=== PATIENT | female | born 1985 | race Hispanic/Latino ===

== ENCOUNTER 2023-05-24 16:24 | Emergency (ER) | payer OTHER ==
[2023-05-24] MEDS ORDERED: CETIRIZINE HCL 5 MG TABLET ONE (16:50)
[2023-05-24] MEDS ORDERED: ALBUTEROL 2.5 MG/3 ML NEB SOL ONE (16:50)
[2023-05-24] MEDS ORDERED: dexAMETHasone 10 MG/ML VIAL ONE (16:50)
[2023-05-24] MEDS ORDERED: FAMOTIDINE 20 MG/2 ML VIAL IV ONE (16:51)
[2023-05-24] MEDS ORDERED: MAGNESIUM SULFATE 1 gm IVPB 1 GM/100 ML BAG IV ONE (16:51)
[2023-05-24] MEDS ORDERED: NA CHLORIDE 0.9% 1,000 ML ONE (16:51)
--- NOTE | 2023-05-24 17:41 | ER ---
Nurse's Notes [facility] Name: Denice Alonso Age: 38 yrs Sex: Female : 1985 Arrival Date: 05/24/2023 Time: 16:24 Bed 13 Private MD: Diagnosis: Unspecified asthma with (acute) exacerbation Presentation: 05/24 16:34 Chief complaint: Patient states: Asthma exacerbation since this morning. Coronavirus ld1 screen: At this time, the client does not indicate any symptoms associated with coronavirus-19. Ebola Screen: No symptoms or risks identified at this time. Initial Sepsis Screen: Does the patient meet any 2 criteria? No. Patient's initial sepsis screen is negative. Does the patient have a suspected source of infection? No. Patient's initial sepsis screen is negative. Risk Assessment: Do you want to hurt yourself or someone else? Patient reports no desire to harm self or others. Onset of symptoms was May 24, 2023. 16:34 Method Of Arrival: Ambulatory ld1 16:34 Acuity: JOSHUA 3 ld1 Triage Assessment: 16:35 General: Appears in no apparent distress. comfortable, Behavior is calm, cooperative, ld1 appropriate for age. Pain: Denies pain. EENT: No signs and/or symptoms were reported regarding the EENT system. Neuro: Level of Consciousness is awake, alert, obeys commands, Oriented to person, place, time, situation. Cardiovascular: Capillary refill < 3 seconds Patient's skin is warm and dry. Rhythm is sinus rhythm. Respiratory: Airway is patent Respiratory effort is even, labored, Breath sounds with wheezes bilaterally. GI: Abdomen is round non-distended. : No signs and/or symptoms were reported regarding the genitourinary system. Derm: No signs and/or symptoms reported regarding the dermatologic system. Musculoskeletal: No signs and/or symptoms reported regarding the musculoskeletal system. Historical: - Allergies: 16:35 No Known Allergies; ld1 - PMHx: 16:35 Asthma; ld1 - PSHx: 16:35 None; ld1 - Immunization history:: Adult Immunizations up to date. - Social history:: Smoking status: Patient denies any tobacco usage or history of. Patient uses alcohol, occasionally. Screenin:36 [facility] ED Fall Risk Assessment (Adult) History of falling in the last 3 months, ld1 including since admission No falls in past 3 months (0 pts). Abuse screen: Denies threats or abuse. Denies injuries from another. Nutritional screening: No deficits noted. Tuberculosis screening: No symptoms or risk factors identified. Assessment: 16:36 Reassessment: See triage assessment. ld1 17:11 Reassessment: Patient appears in no apparent distress at this time. No changes from ld1 previously documented assessment. Patient and/or family updated on plan of care and expected duration. Pain level reassessed. Vital Signs: 16:34 BP 119 / 97; Pulse 76; Resp 18; Temp 98.3(O); Pulse Ox 98% on R/A; Weight 88 kg; Height ld1 5 ft. 1 in. ; Pain 0/10; 17:11 BP 112 / 66; Pulse 73; Resp 20; Pulse Ox 100% on Nebulizer Mask; ld1 17:53 BP 118 / 70; Pulse 79; Resp 18; Pulse Ox 100% on R/A; ld1 16:34 Body Mass Index 36.66 (88.00 kg, 154.94 cm) ld1 16:34 Pain Scale: Adult ld1 ED Course: 16:26 Patient arrived in ED. mr 16:28 Carey Baptiste, KAT is [facility]. snw 16:29 Medardo Westbrook MD is Attending Physician. snw 16:34 Yulia Larios, JANICE is Primary Nurse. ld1 16:35 Triage completed. ld1 16:35 Arm band placed on right wrist. ld1 16:36 Patient has correct armband on for positive identification. Placed in gown. Bed in low ld1 position. Call light in reach. Side rails up X2. laboratory monitor on. Pulse ox on. NIBP on. Door closed. Noise minimized. Warm blanket given. 16:36 No provider procedures requiring assistance completed. Inserted saline lock: 20 gauge ld1 in right antecubital area, using aseptic technique. Blood collected. 17:54 IV discontinued, intact, bleeding controlled, No redness/swelling at site. ld1 Administered Medications: 16:48 Drug: NS 0.9% IV 1000 ml Route: IV; Rate: 1 bolus; Site: right antecubital; ld1 16:48 Drug: Decadron - Dexamethasone IVP 10 mg Route: IVP; Site: right antecubital; ld1 16:48 Drug: Magnesium Sulfate IVPB 1 grams Route: IVPB; Infused Over: 1 hrs; Site: right ld1 antecubital; 16:48 Drug: Albuterol Inhalation 2.5 mg Route: Inhalation; ld1 16:48 Drug: Famotidine IVP 20 mg Route: IVP; Site: right antecubital; ld1 16:48 Drug: ZyrTEC - Cetirizine PO 10 mg Route: PO; ld1 17:25 Drug: Rocephin IV 1 grams Route: IV; Rate: calculated rate; Site: right antecubital; ld1 Medication: 16:36 VIS not applicable for this client. ld1 Outcome: 17:41 Discharge ordered by . snrafia 17:54 Discharged to home ambulatory, with family. ld1 17:54 Condition: stable 17:54 Discharge instructions given to patient, family, Instructed on discharge instructions, follow up and referral plans. medication usage, Demonstrated understanding of instructions, follow-up care, medications, Prescriptions given X 6 17:54 Patient left the ED. ld1 Signatures: Carey Baptiste, [employer] OUT CARPENTER-[employer]vy [place] Lauren, RN RN ld1
--- NOTE | 2023-05-24 17:41 | EDPHYS ---
Physician Documentation [facility] Name: Denice Alonso Age: 38 yrs Sex: Female : 1985 Arrival Date: 05/24/2023 Time: 16:24 Bed 13 Private MD: ED Physician Medardo Westbrook HPI: 05/24 17:03 This 38 yrs old Female presents to ER via Ambulatory with complaints of Asthma snw Exacerbation. 17:03 The patient presents to the emergency department with wheezing, Current therapy: snw albuterol inhaler, that began after exposure to weather, environmental, the patient was reported to have. Onset: The symptoms/episode began/occurred suddenly, 2 day(s) ago, and became worse today. Associated signs and symptoms: Pertinent positives: wheezing. The patient has experienced similar episodes in the past. It is unknown whether or not the patient has recently seen a physician. Historical: - Allergies: 16:35 No Known Allergies; ld1 - PMHx: 16:35 Asthma; ld1 - PSHx: 16:35 None; ld1 - Immunization history:: Adult Immunizations up to date. - Social history:: Smoking status: Patient denies any tobacco usage or history of. Patient uses alcohol, occasionally. ROS: 16:59 Eyes: Negative for injury, pain, redness, and discharge, ENT: Negative for injury, snw pain, and discharge, Neck: Negative for injury, pain, and swelling, Cardiovascular: Negative for chest pain, palpitations, and edema, Abdomen/GI: Negative for abdominal pain, nausea, vomiting, diarrhea, and constipation, Back: Negative for injury and pain, : Negative for injury, bleeding, discharge, and swelling, MS/Extremity: Negative for injury and deformity, Skin: Negative for injury, rash, and discoloration, Neuro: Negative for headache, weakness, numbness, tingling, and seizure, Psych: Negative for depression, anxiety, suicide ideation, homicidal ideation, and hallucinations. 16:59 Constitutional: Positive for shortness of breath, wheezing. 16:59 Respiratory: Positive for cough, wheezing, expiratory. Exam: 16:58 Constitutional: This is a well developed, well nourished patient who is awake, alert, snw and in no acute distress. Head/Face: Normocephalic, atraumatic. Eyes: Pupils equal round and reactive to light, extra-ocular motions intact. Lids and lashes normal. Conjunctiva and sclera are non-icteric and not injected. Cornea within normal limits. Periorbital areas with no swelling, redness, or edema. ENT: Nares patent. No nasal discharge, no septal abnormalities noted. Tympanic membranes are normal and external auditory canals are clear. Oropharynx with no redness, swelling, or masses, exudates, or evidence of obstruction, uvula midline. Mucous membranes moist. Neck: Trachea midline, no thyromegaly or masses palpated, and no cervical lymphadenopathy. Supple, full range of motion without nuchal rigidity, or vertebral point tenderness. No Meningismus. Chest/axilla: Normal chest wall appearance and motion. Nontender with no deformity. No lesions are appreciated. Cardiovascular: Regular rate and rhythm with a normal S1 and S2. No gallops, murmurs, or rubs. Normal PMI, no JVD. No pulse deficits. Abdomen/GI: Soft, non-tender, with normal bowel sounds. No distension or tympany. No guarding or rebound. No evidence of tenderness throughout. Back: No spinal tenderness. No costovertebral tenderness. Full range of motion. Skin: Warm, dry with normal turgor. Normal color with no rashes, no lesions, and no evidence of cellulitis. MS/ Extremity: Pulses equal, no cyanosis. Neurovascular intact. Full, normal range of motion. Neuro: Awake and alert, GCS 15, oriented to person, place, time, and situation. Cranial nerves II-XII grossly intact. Motor strength 5/5 in all extremities. Sensory grossly intact. Cerebellar exam normal. Normal gait. Psych: Awake, alert, with orientation to person, place and time. Behavior, mood, and affect are within normal limits. 16:58 Respiratory: the patient does not display signs of respiratory distress, Respirations: normal, Breath sounds: wheezing: expiratory that is moderate, that is severe, is heard diffusely. Vital Signs: 16:34 BP 119 / 97; Pulse 76; Resp 18; Temp 98.3(O); Pulse Ox 98% on R/A; Weight 88 kg; Height ld1 5 ft. 1 in. ; Pain 0/10; 17:11 BP 112 / 66; Pulse 73; Resp 20; Pulse Ox 100% on Nebulizer Mask; ld1 17:53 BP 118 / 70; Pulse 79; Resp 18; Pulse Ox 100% on R/A; ld1 16:34 Body Mass Index 36.66 (88.00 kg, 154.94 cm) ld1 16:34 Pain Scale: Adult ld1 MDM: 16:29 Patient medically screened. snw 17:01 Differential diagnosis: acute asthma, reactive airway, URI. Data reviewed: vital signs, snw nurses notes. I considered the following discharge prescriptions or medication management in the emergency department Medications were administered in the Emergency Department. See NOV. 17:02 Counseling: I had a detailed discussion with the patient and/or guardian regarding the snw historical points, exam findings, and any diagnostic results supporting the discharge/admit diagnosis, the need for outpatient follow up, for definitive care, to return to the emergency department if symptoms worsen or persist or if there are any questions or concerns that arise at home. Response to treatment: the patient's symptoms have markedly improved after treatment, feeling better, more relaxed. Special discussion: Based on the history and exam findings, there is no indication for further emergent testing or inpatient evaluation. I discussed with the patient/guardian the need to see the primary care provider for further evaluation of the symptoms. I discussed with the patient/guardian the need to see the program management manager for further evaluation of the symptoms. Administered Medications: 16:48 Drug: NS 0.9% IV 1000 ml Route: IV; Rate: 1 bolus; Site: right antecubital; ld1 16:48 Drug: Decadron - Dexamethasone IVP 10 mg Route: IVP; Site: right antecubital; ld1 16:48 Drug: Magnesium Sulfate IVPB 1 grams Route: IVPB; Infused Over: 1 hrs; Site: right ld1 antecubital; 16:48 Drug: Albuterol Inhalation 2.5 mg Route: Inhalation; ld1 16:48 Drug: Famotidine IVP 20 mg Route: IVP; Site: right antecubital; ld1 16:48 Drug: ZyrTEC - Cetirizine PO 10 mg Route: PO; ld1 17:25 Drug: Rocephin IV 1 grams Route: IV; Rate: calculated rate; Site: right antecubital; ld1 Disposition Summary: 05/24/23 17:41 Discharge Ordered Location: Home snw Condition: Stable snw Diagnosis - Unspecified asthma with (acute) exacerbation snw Followup: snw - With: Emergency Department - When: As needed - Reason: Worsening of condition Followup: snw - With: Private Physician - When: 2 - 3 days - Reason: Recheck today's complaints, Continuance of care, Re-evaluation by your physician Discharge Instructions: - Discharge Summary Sheet snw - Asthma, Adult snw - How to Use a Dry Powder Inhaler snw Forms: - Work release form snw - Medication Reconciliation Form snw - Thank You Letter snw - Antibiotic Education snw - Prescription Opioid Use snw - Patient Portal Instructions snw - Leadership Thank You Letter snw Prescriptions: - albuterol sulfate 90 mcg/actuation Inhalation HFA Aerosol Inhaler - inhale 2 puff by INHALATION route every 4 to 6 hours for 7 days as needed for snw bronchospasm; 1 Unspecified; Refills: 0, Product Selection Permitted - Advair Diskus 500-50 mcg/Dose Inhalation Disk with Device - inhale 1 puff by INHALATION route every 12 hours; 1 packet; Refills: 0, Product snw Selection Permitted - Zyrtec 10 mg Oral Tablet - take 1 tablet by ORAL route once daily As needed; 20 tablet; Refills: 0, snw Product Selection Permitted - Prednisone 20 mg Oral Tablet - take 2 tablets by ORAL route once daily for 5 days; 10 tablet; Refills: 0, snw Product Selection Permitted - Pepcid 20 mg Oral Tablet - take 1 tablet by ORAL route once daily; 20 tablet; Refills: 0, Product snw Selection Permitted - Zithromax 500 mg Oral Tablet - take 1 tablet by ORAL route once daily for 5 days; 5 tablet; Refills: 0, snw Product Selection Permitted Signatures: Carey Baptiste, TRACING LATHE SET UP OPERATOR-C [employer]ACING [employer] SET UP OPERATOR-[facility] Yulia Larios, RN RN ld1
[2023-05-24] MEDS ORDERED: CEFTRIAXONE 1000 MG/VIAL ONE (17:59)
[2023-05-24 18:37] VITALS: TEMP 98.3
[2023-05-24 18:38] VITALS: BP 118/70; O2SAT 100
== END 2023-05-24 17:54 | disposition home or self-care (01) ==
LOC: ER 16:24
DX: J45.901 Unspecified asthma with (acute) exacerbation (principal)
CPT/HCPCS: J3475; J7613; J1100; J7030; J0696; 96374; 96375; 99285